=== PATIENT | female | born 1985 ===

== ENCOUNTER 2017-02-15 13:49 | Emergency (ER) | payer MEDICAID ==
[2017-02-15 13:55] VITALS: BP 143/82; PULSE 79; RESP 18; TEMP 98; O2SAT 100
--- NOTE | 2017-02-15 16:46 | C.PDOC ---
History Of Present Illness The patient, a 31 y/o female, presents to the ED for evaluation of pain to the medial aspect of her left hand which began around 2 days ago. Patient states she was holding something in her left hand when her mother suddenly grabbed the object out of patient's hand. Since then, patient has been experienced pain to her left 4th and 5th fingers. Patient states the pain originates in the back of her hand, travels through her wrist, and radiates to her elbow. Patient also reports swelling, numbness, and tingling to the affected areas. Patient reports history of experiencing similar pains in her left hand, stating the last occurrence was around 6 months ago. Patient was evaluated in [facility] yesterday, told she had a sprain, and discharged from the ED. Patient denies other injury/ trauma. Chief Complaint (Nursing): Finger,Hand,&Wrist History Per: Patient History/Exam Limitations: no limitations Onset/Duration Of Symptoms: Days (2) Current Symptoms Are (Timing): Still Present Quality: "Pain" Additional History Per: Patient Past Medical History Reviewed: Historical Data, Nursing Documentation, Vital Signs Vital Signs: Last Vital Signs Temp 98.0 F 02/15/17 13:53 Pulse 79 02/15/17 13:53 Resp 18 02/15/17 16:21 BP 143/82 02/15/17 13:53 Pulse Ox 100 02/15/17 18:37 - Medical History PMH: No Chronic Diseases Surgical History: No Surg Hx Family History: States: Unknown Family Hx - Social History Hx Alcohol Use: No Hx Substance Use: No - Immunization History Hx Tetanus Toxoid Vaccination: No Hx Influenza Vaccination: No Hx Pneumococcal Vaccination: No Review Of Systems Except As Marked, All Systems Reviewed And Found Negative. Constitutional: Negative for: Fever, Chills Musculoskeletal: Positive for: Other (+pain to left upper extremity ) Neurological: Positive for: Weakness (left upper extremity ), Numbness (left upper extremity ) Physical Exam - Physical Exam Appears: Non-toxic, No Acute Distress Skin: Normal Color, Warm, Dry Head: Atraumatic, Normacephalic Eye(s): bilateral: Normal Inspection, EOMI Oral Mucosa: Moist Neck: Normal ROM, Supple Chest: Symmetrical, No Deformity, No Tenderness Cardiovascular: Rhythm Regular Respiratory: Normal Breath Sounds Extremity: Tenderness (mild to medial aspect of left hand ), Capillary Refill ( less than 2 seconds ) Pulses: Left Radial: Normal, Right Radial: Normal Neurological/Psych: Oriented x3, Normal Speech, Normal Cognition Gait: Steady ED Course And Treatment O2 Sat by Pulse Oximetry: 100 (on RA) Pulse Ox Interpretation: Normal - Other Rad wrist XR X-Ray: Interpreted by Me, Viewed By Me, Read By Radiologist Interpretation: Accession No. : [id number]. Patient Name / ID : CHANNING QURESHI / [id number]. Exam Date : 02/15/2017 14:20:04 ( Approved ). Study Comment : Sex / Age : F / 31Y. Creator : Yamilet Boyd MD. Dictator : Yamilet Boyd MD. Adhesive Primer : Project Engineering Director : Yamilet Boyd MD. Approver2 : Report Date : 02/15/2017 17:00:28. My Comment : . PROCEDURE: Left hand radiographs. Left wrist radiographs. HISTORY: r/ o fx. COMPARISON: None available. FINDINGS: BONES: No acute displaced fracture. JOINTS: No dislocation. SOFT TISSUES: Unremarkable. No evidence of radiopaque foreign body. OTHER FINDINGS: None. IMPRESSION: No acute displaced fracture, dislocation, or significant joint effusion identified. If symptoms persist, or if there is continued clinical concern, x-ray follow-up in 7-10 days should be considered. hand XR X-Ray: Interpreted by Me, Viewed By Me, Read By Radiologist Interpretation: Accession No. : [id number]. Patient Name / ID : CHANNING QURESHI / [id number]. Exam Date : 02/15/2017 14:19:55 ( Approved ). Study Comment : Sex / Age : F / 31Y. Creator : Yamilet Boyd MD. Dictator : Yamilet Boyd MD. Adhesive Primer : Project Engineering Director : Yamilet Boyd MD. Approver2 : Report Date : 02/15/2017 17:00:03. My Comment : . PROCEDURE: Left hand radiographs. Left wrist radiographs. HISTORY: r/ o fx. COMPARISON: None available. FINDINGS: BONES: No acute displaced fracture. JOINTS: No dislocation. SOFT TISSUES: Unremarkable. No evidence of radiopaque foreign body. OTHER FINDINGS: None. IMPRESSION: No acute displaced fracture, dislocation, or significant joint effusion identified. If symptoms persist, or if there is continued clinical concern, x-ray follow-up in 7-10 days should be considered. Progress Note: Left hand and wrist XR ordered and reviewed. Patient received Motrin PO. Disposition - Disposition Referrals: Tisha Henley, [Non-Staff] - Disposition: HOME/ ROUTINE Disposition Time: 16:15 Condition: GOOD Additional Instructions: Thank you for letting us take care of you today. Your provider was Dr. Pena. You were treated for hand sprain. The emergency medical care you received today was directed at your acute symptoms. If you were prescribed any medication, please fill it and take as directed. It may take several days for your symptoms to resolve. Return to the Emergency Department if your symptoms worsen, do not improve, or if you have any other problems. Please contact your doctor or call one of the physicians/clinics you have been referred to that are listed on the Patient Visit Information form that is included in your discharge packet. Bring any paperwork you were given at discharge with you along with any medications you are taking to your follow up visit. Our treatment cannot replace ongoing medical care by a primary care provider (PCP) outside of the emergency department. Thank you for allowing the [facility] team to be part of your care today. Follow up with your doctor in 3-4 days to be re-evaluation. Prescriptions: Ibuprofen [Motrin] 600 mg PO Q6 PRN #20 tab PRN Reason: Pain, Moderate (4-7) Instructions: Hand Sprain (ED) Forms: Work Excuse - Clinical Impression Clinical Impression: Sprain of hand - Scribe Statement The provider has reviewed the documentation as recorded by the Scribe (Bailee Alvarez) Provider Attestation: All medical record entries made by the Scribe were at my direction and personally dictated by me. I have reviewed the chart and agree that the record accurately reflects my personal performance of the history, physical exam, medical decision making, and the department course for this patient. I have also personally directed, reviewed, and agree with the discharge instructions and disposition.
--- NOTE | 2017-02-15 17:01 | RAD ---
PROCEDURE: Left hand radiographs Left wrist radiographs HISTORY: r/o fx COMPARISON: None available. FINDINGS: BONES: No acute displaced fracture. JOINTS: No dislocation. SOFT TISSUES: Unremarkable. No evidence of radiopaque foreign body. OTHER FINDINGS: None. IMPRESSION: No acute displaced fracture, dislocation, or significant joint effusion identified. If symptoms persist, or if there is continued clinical concern, x-ray follow-up in 7-10 days should be considered.
== END 2017-02-15 16:48 | disposition home or self-care (01) ==
LOC: C.ER 13:49
DX: S63.92XD Sprain of unspecified part of left wrist and hand, subsequent encounter (principal); X58.XXXD Exposure to other specified factors, subsequent encounter